=== PATIENT | female | born 1950 | race Caucasian/White ===

== ENCOUNTER → 2017-06-02 | Outpatient (CLI) | payer MEDICARE, BC ==
[2015-07-28 13:02] VITALS: BMI 16.8
[~2017-06-02] MED LIST: ACE3 PO; ALEN70TA2 PO; AMI10 PO; AMIT-104 PO; BAC10 PO; BUPR-472 PO; BUSP15TA69 PO; CALC-852 PO; CALC600T72; CELE-1 PO; CHOL200022 PO; CHOL200038 PO; CHOL40002 PO; CLON0.125 PO; CYCL10TA29 PO; DES100PT PO; DESV25TA PO; DESV50TA9 PO; DICL100G39 TP; DICL1ADH32 TD; DULO30CA35 PO; ERGO500037 PO; ESC10 PO; ESTR-25 PO; FLU IM; FLU30SYR8 IM ONLY; FLU45SYR17 IM; FLU45SYR25 IM ONLY; FLU60SYR30 IM ONLY; GABA-492 PO; GABA-547 PO; GABA-549 PO; GLUC-198 PO; HYDR12.561 PO; IRO150 PO; LISI-346 PO; LISI-362 PO; LISI5TAB25 PO; LOR1 PO; LORA-1455 PO; LORA-630 PO; MELA5TAB6 PO; MELO-205 PO; MELO-207 PO; METH4TAB66 PO; METO25TA23 PO; MIR45PT PO; MIRT-17 PO; MIRT-25 PO; MIRT-27 PO; MULT1CAP41 PO; NEBI2.5T PO; NEBI2.5T5 PO; NEBI5TAB PO; NOR PO; OLAN10TA25 PO; ONDA4TAB PO; ORP100 PO; PETADOLEX PO; PNEI IJ; PNEU0.5D3 IM; RIBO100T9 PO; TRAZ-156 PO; TRAZ-163 PO; VENL37.53 PO; VENL75CA58 PO; ZOLP-1 PO; [UNRECOGNIZED DRUG - OTHER]
--- NOTE | 2017-06-02 10:07 | RADIOLOGY IMAGING REPORT ---
[place] [facility] [place] NAME: Blanca Andre : 1950 MR: [id number] V: [id number] EXAM DATE: ORDERING PHYSICIAN: BLANCA MCGILL TECHNOLOGIST: Location: [facility] - [place] Patient: Blanca Andre : 1950 Visit/Account:[id number] Date of Sevice: 06/02/2017 DEXA Scan Clinical history: Postmenopausal osteopenia. Comparison: DEXA scan from 09/23/2014. LUMBAR SPINE: The bone mineral density (BMD) measured from L1-L4 correlates with a Z-score of 0.1 and a T-score of -2.3 which is osteopenia as defined by the World Health Organization. The corresponding risk of frac ture in the lumbar spine is 4-6 times increased compared with a young adult reference population. Th is value has decreased by 4.2 % since the prior study. More than 5% change is considered significant . HIP: Bone mineral density (BMD) measured in the LEFT total hip region correlates with a Z-score -1.1 and a T-score of -3 which is osteoporosis as defined by the World Health Organization. The corresponding risk of fracture in the hip is 8 times increased compared to a young adult reference population. This value has decreased by 10.4 % since the prior study. More than 5% change is considered significant. T score left femoral neck -2.4 Bone mineral density (BMD) measured in the Femoral Neck region measures 0.702 g/cm?. IMPRESSION: 1. Lumbar spine: Osteopenia. There has been 4.2% decrease in the bone mineral density since the pre vious exam. 2. Left Total Hip: Osteoporosis. There has been 10.4% decrease in the bone mineral density since th e previous exam. 3. Femoral Neck: Bone Mineral Density is 0.702 g/cm? The next DEXA scan of this patient should include the following sites: L1-L4 and the left hip. FRAX? WHO Fracture Risk Assessment Tool link: <http://www.shef.ac.uk/FRAX/tool.jsp?locationValue=9> PLEASE NOTE: 1) The World Health Organization defines low BMD as follows: T-score Normal > -1 Osteopenia < -1 and > -2.5 Osteoporosis < -2.5 without fractures Established osteoporosis < -2.5 with fractures 2) In general, you may wish to consider: Diagnosis Treatment Follow-up DEXA Normal BMD Prevention 2-3 years Osteopenia Prevention/therapy 1-2 years Osteoporosis Therapy Yearly 3) Fracture risk estimated from the T-score is more accurate for vertebral fractures (often spontane ous) than for hip fractures. Report Dictated By: Ana Miller MD at 06/02/2017 10:00 AM Report E-Signed By: Ana Miller MD at 06/02/2017 10:01 AM WSN:[email or web address]
== END ==
LOC: RAD 07:04
PROVIDERS: ATTEND Emergency Medicine
DX: Z13.820 Encounter for screening for osteoporosis (principal); M85.88 Other specified disorders of bone density and structure, other site; M81.0 Age-related osteoporosis without current pathological fracture; Z78.0 Asymptomatic menopausal state
CPT/HCPCS: 77080

== ENCOUNTER → 2017-06-07 | Outpatient (CLI) | payer MEDICARE, BC ==
[2015-07-28 13:02] VITALS: BMI 16.8
[~2017-06-07] MED LIST changes: +SERT-181 PO
== END ==
LOC: LAB 10:29
PROVIDERS: ATTEND Emergency Medicine
DX: R10.9 Unspecified abdominal pain (principal)
CPT/HCPCS: 87177; 87338; G0328; 82274

== ENCOUNTER → 2017-06-07 | Outpatient (CLI) | payer MEDICARE, BC ==
[2015-07-28 13:02] VITALS: BMI 16.8
[2017-06-07 16:48] LABS: PLATELET COUNT, AUTOMATED 232 K/uL (150-450)
== END ==
LOC: LAB 16:22
PROVIDERS: ATTEND Emergency Medicine
DX: R63.4 Abnormal weight loss (principal); M85.80 Other specified disorders of bone density and structure, unspecified site
CPT/HCPCS: 36415; 81001; 82040; 82247; 82306; 82310; 82374; 82435; 82565; 82947; 83970; 84075; 84132; 84155; 84295; 84443; 84450; 84460; 84520; 85025; 86140

== ENCOUNTER → 2017-06-19 | Outpatient (CLI) | payer MEDICARE, BC ==
[2015-07-28 13:02] VITALS: BMI 16.8
[~2017-06-19] MED LIST changes: +IOPAMIDOL 76% 75 ML INFUS BTL 75 ML ONE
--- NOTE | 2017-06-19 10:28 | RADIOLOGY IMAGING REPORT ---
[facility] PATIENT NAME: Blanca Andre : 1950 MR: [id number] V: [id number] EXAM DATE: ORDERING PHYSICIAN: BLANCA MCGILL TECHNOLOGIST: Location: [facility] Patient: Blanca Andre : 1950 Visit/Account:[id number] Date of Sevice: 06/19/2017 CHEST/AB/PELV W/CONTRAST HISTORY: abnormal weight loss ADDITIONAL HISTORY: None. TECHNIQUE: Following administration of IV contrast axial images acquired through the chest abdomen a nd pelvis during the arterial phase. Coronal and sagittal reformatting was also performed. Dose Lowe ring Technique One of the following dose optimization techniques was utilized in the performance of this exam: Autom ated exposure control; adjustment of the mA and/or kV according to the patient's size; or use of an i terative reconstruction technique. Specific details can be referenced in the facility's radiology C T exam operational policy. CONTRAST: 75 mL Isovue-370 COMPARISON: None. FINDINGS: CHEST: Lungs/Pleura: Mild biapical fibrotic change. There is a small focal area of dense airspace consolidation in the posterior medial right lower lobe which may represent atelectasis or scarring. Mild linear stranding in the lower lobes bilaterally ma y represent scarring versus atelectasis Mediastinum/lymph nodes: Negative. Heart/vessels: Mild coronary artery vascular calcifications Bones/soft tissues: No aggressive appearing bone lesions ABDOMEN AND PELVIS: Hepatobiliary: 1 cm indeterminant round hypoattenuating lesion posterior medial right lobe of the li arben Spleen: Negative. Pancreas: Negative. Adrenals: Negative. Kidneys ureters and bladder : There are extrarenal pelves bilaterally. Urinary bladder is mildly dis tended with moderate bladder wall thickening Genitalia: Uterus is retroverted and appears slightly heterogeneous GI: Moderate amount of fecal material in the colon which can be seen with constipation Vessels/spaces/nodes: Mild vascular calcifications throughout the abdomen and pelvis Bones/soft tissues: Gentle dextroconvex scoliosis of the lumbar spine. No aggressive appearing bone lesions are seen Additional findings: None pertinent. IMPRESSION: Mild biapical fibrotic change in the upper lung pappas Small focal area of dense airspace consolidation the posterior medial right lower lobe which may repr esent an area of atelectasis or scarring 1 cm indeterminate round hypoattenuating lesion posterior medial right lobe of the liver. Further ev aluation with ultrasound or MR may be helpful depending upon the clinical concern. Urinary bladder is mildly distended with moderate bladder wall thickening. This could be related to an infectious/inflammatory process Uterus appears slightly heterogeneous if of concern pelvic ultrasound recommended Moderate amount of fecal material in the colon which can be seen with constipation Report Dictated By: Ana Miller MD at 06/19/2017 9:55 AM Report E-Signed By: Ana Miller MD at 06/19/2017 10:23 AM WSN:[email or web address]
== END ==
LOC: CT 01:25
PROVIDERS: ATTEND Emergency Medicine
DX: K59.00 Constipation, unspecified (principal); K76.9 Liver disease, unspecified; R91.8 Other nonspecific abnormal finding of lung field; I25.10 Atherosclerotic heart disease of native coronary artery without angina pectoris
CPT/HCPCS: 71260; 74177; Q9967

== ENCOUNTER → 2017-06-30 | Outpatient (CLI) | payer MEDICARE, BC ==
[2015-07-28 13:02] VITALS: BMI 16.8
[~2017-06-30] MED LIST changes: -IOPAMIDOL 76% 75 ML INFUS BTL 75 ML ONE
--- NOTE | 2017-06-30 11:14 | RADIOLOGY IMAGING REPORT ---
FACILITY: PATIENT NAME: Blanca Andre : 1950 MR: [id number] V: [id number] EXAM DATE: ORDERING PHYSICIAN: BLANCA MCGILL TECHNOLOGIST: [place] [facility] [place]: Blanca Andre : 1950 Visit/Account:[id number] Date of Sevice: 06/30/2017 EXAMINATION: Abdominal ultrasound complete HISTORY: Abnormal CT of liver COMPARISON: CT chest abdomen and pelvis June 19, 2017 FINDINGS: Gallbladder: No stones, wall thickening, pericholecystic fluid or sonographic Moon sign. Liver: The 1 cm round hypoattenuating lesion along the posterior medial right lobe of the liver adjac ent to the right kidney appears to represent a simple cyst. Common duct: Normal measuring 3.1 mm. Pancreas: Appears unremarkable as imaged Spleen: Normal in size and echogenicity measuring eight cm in length. Kidneys: Normal in size and echogenicity, the right measures 11.2 cm in length, and the left 9.9 cm. No hydronephrosis. There are extrarenal pelves in both kidneys with mild pyelocaliectasis Upper abdominal aorta and IVC: Negative. Ascites: None. IMPRESSION: 1 cm round hypoattenuating lesion along the posterior medial aspect right lobe the liver appears to r epresent simple cyst Extrarenal pelves in both kidneys with mild pyelocaliectasis Report Dictated By: Ana Miller MD at 06/30/2017 10:55 AM Report E-Signed By: Ana Miller MD at 06/30/2017 11:09 AM WSN:[email or web address]
--- NOTE | 2017-06-30 11:25 | RADIOLOGY IMAGING REPORT ---
FACILITY: [facility] - [place] PATIENT NAME: Blanca Andre : 1950 MR: [id number] V: [id number] EXAM DATE: ORDERING PHYSICIAN: BLANCA MCGILL TECHNOLOGIST: Location: [facility] - [place] Patient: Blanca Andre : 1950 Visit/Account:[id number] Date of Sevice: 06/30/2017 PELVIC HISTORY: abnormal ct TECHNIQUE: Transvaginal and transabdominal ultrasound pelvis. COMPARISON: CT chest abdomen pelvis June 19, 2017 FINDINGS: Uterus: Retroverted; 5.2 cm length x 3.3 cm AP x 3.6 cm transverse. Myometrium: Appears heterogeneous and contains scattered calcifications. Endometrium: Appears thinned; double thickness 1.2 mm. Cervix: There is a heterogeneous hypoechoic masslike area within the cervix measuring 1 x 1.6 x 1 cm. Ovaries: Right - 1.7 x 1.4 x 0.8 Left - 1.4 x 1.3 x 0.9 Blood flow is documented in each ovary by duplex Doppler ultrasound. Adnexa: Grossly unremarkable. Free pelvic fluid: None. IMPRESSION: There is an atrophic retroverted uterus with heterogeneous myometrium containing scattered calcificat ions There is a heterogeneous hypoechoic masslike area within the cervix measuring 1 x 1.6 x 1 cm. SENIOR [employer]YRO[employer]IST co nsultation recommended Atrophic ovaries Report Dictated By: Ana Miller MD at 06/30/2017 11:09 AM Report E-Signed By: Ana Miller MD at 06/30/2017 11:21 AM WSN:[email or web address]
== END ==
LOC: US 03:23
PROVIDERS: ATTEND Emergency Medicine
DX: K76.9 Liver disease, unspecified (principal); N13.30 Unspecified hydronephrosis; N85.4 Malposition of uterus; N88.8 Other specified noninflammatory disorders of cervix uteri
CPT/HCPCS: 76700; 76856

== ENCOUNTER → 2017-07-05 | Outpatient (CLI) | payer MEDICARE, BC ==
[2015-07-28 13:02] VITALS: BMI 16.8
[~2017-07-05] MED LIST changes: +SODCTAB PO
== END ==
LOC: LAB 10:25
PROVIDERS: ATTEND Emergency Medicine
DX: E87.1 Hypo-osmolality and hyponatremia (principal)
CPT/HCPCS: 36415; 82310; 82374; 82435; 82565; 82947; 84132; 84295; 84520

== ENCOUNTER → 2017-08-07 | Outpatient (CLI) | payer MEDICARE, BC ==
[2015-07-28 13:02] VITALS: BMI 16.8
--- NOTE | 2017-08-07 17:12 | RADIOLOGY IMAGING REPORT ---
[place] [facility] [place] WILLIE PEREZ : [id number] MR: [id number] V: [id number] EXAM DATE: [id number] ORDERING PHYSICIAN: MARIA DEL ROSARIO ESCAMILLA TECHNOLOGIST: Crystal Trotter PROCEDURE:BILATERAL DIGITAL SCREENING MAMMOGRAM WITH CAD ASSISTED INTERPRETATION & 3D TOMOSYNTHESIS COMPARISON:Prior mammograms 04/05/16, 04/01/15, 03/11/14, 08/09/13, 02/08/13, 08/14/12. INDICATIONS:SCREENING FINDINGS: Moderately heterogeneous fibroglandular tissue is seen throughout the breasts. The parenchymal pattern has remained stable allowing for difference in mammographic technique & patient positioning. There is no evidence of malignant appearing mass, malignant appearing calcifications or other secondary sign of malignancy in either breast. DIAGNOSTIC CATEGORY 1--NEGATIVE. RECOMMENDATIONS: ROUTINE MAMMOGRAM AND CLINICAL EVALUATION. IMPRESSION: BIRADS 1: Negative. No significant abnormality is seen. Dictated by: Ana Miller M.D. on 08/07/2017 at 15:36 Transcribed by: AKIL on 08/07/2017 at 15:46 Approved by: Ana Miller M.D. on 08/07/2017 at 17:11 [facility]
== END ==
LOC: MAMO 11:33
PROVIDERS: ATTEND Radiology Radiation Oncology
DX: Z12.31 Encounter for screening mammogram for malignant neoplasm of breast (principal)
CPT/HCPCS: 77063; 77067

== ENCOUNTER → 2017-08-09 | Outpatient (CLI) | payer MEDICARE, BC ==
[2015-07-28 13:02] VITALS: BMI 16.8
== END ==
LOC: LAB 12:23
PROVIDERS: ATTEND Emergency Medicine
DX: E87.1 Hypo-osmolality and hyponatremia (principal)
CPT/HCPCS: 36415; 82310; 82374; 82435; 82565; 82947; 84132; 84295; 84520

== ENCOUNTER → 2017-08-21 | Outpatient (CLI) | payer MEDICARE, BC ==
[2015-07-28 13:02] VITALS: BMI 16.8
[~2017-08-21] MED LIST changes: +CLOM25CA PO
--- NOTE | 2017-08-21 12:42 | RADIOLOGY IMAGING REPORT ---
FACILITY: [facility] PATIENT NAME: Blanca Andre : 1950 MR: [id number] V: [id number] EXAM DATE: ORDERING PHYSICIAN: PAULO HERNANDEZ TECHNOLOGIST: Location: [facility] - [place] Patient: Blanca Andre : 1950 Visit/Account:[id number] Date of Sevice: 08/21/2017 TRANSVAGINAL NON-OB HISTORY: OTHER SPECIFIED NONINFLAMMATORY DISORDERS OF CERVIX UTERI TECHNIQUE: Transvaginal ultrasound pelvis. COMPARISON: Pelvic ultrasound June 30, 2017 FINDINGS: Uterus: Retroverted; 4.7 cm length x 1.9 cm AP x 2.7 cm transverse. Myometrium: Heterogeneous containing multiple calcifications. Endometrium: Unremarkable; double thickness 2.3 mm. Cervix: There is a heterogeneous hypoechoic masslike area within the cervix measuring 1.3 x 1.4 x 0.9 cm. Ovaries: Right - not visualized Left - not visualized Adnexa: Grossly unremarkable. Free pelvic fluid: None. IMPRESSION: There is a 1.3 x 1.4 x 0.9 cm heterogeneous hypoechoic mass like area within the cervix. Neither ovary visualized Retroverted atrophic uterus Report Dictated By: Ana Miller MD at 08/21/2017 12:33 PM Report E-Signed By: Ana Miller MD at 08/21/2017 12:38 PM WSN:[email or web address]
== END ==
LOC: RAD 10:09
PROVIDERS: ATTEND Obstetrics & Gynecology
DX: Z02.9 Encounter for administrative examinations, unspecified (principal)
CPT/HCPCS: 76830

== ENCOUNTER → 2017-10-31 | Outpatient (CLI) | payer MEDICARE, BC ==
[2015-07-28 13:02] VITALS: BMI 16.8
[~2017-10-31] MED LIST changes: -TRAZ-156 PO; -TRAZ-163 PO; +TRAZ100T31 PO; +TRAZ50TA34 PO
== END ==
LOC: LAB 10:38
PROVIDERS: ATTEND Emergency Medicine
DX: E87.1 Hypo-osmolality and hyponatremia (principal)
CPT/HCPCS: 36415; 82310; 82374; 82435; 82565; 82947; 84132; 84295; 84520

== ENCOUNTER → 2017-11-13 | Outpatient (CLI) | payer MEDICARE, BC ==
[2015-07-28 13:02] VITALS: BMI 16.8
[~2017-11-13] MED LIST changes: +CHOL100059 PO; +CHOL200018 PO; -CHOL200022 PO; +CYAN100088 PO; +CYAN20003 PO
== END ==
LOC: RESP 15:19
PROVIDERS: ATTEND Emergency Medicine
DX: Z02.9 Encounter for administrative examinations, unspecified (principal)

== ENCOUNTER → 2018-01-15 | Outpatient (CLI) | payer MEDICARE, BC ==
[2015-07-28 13:02] VITALS: BMI 16.8
[~2018-01-15] MED LIST changes: +FLU180SY11 IM
== END ==
LOC: LAB 09:57
PROVIDERS: ATTEND Emergency Medicine
DX: E87.1 Hypo-osmolality and hyponatremia (principal); R30.0 Dysuria
CPT/HCPCS: 36415; 81001; 82310; 82374; 82435; 82565; 82947; 84132; 84295; 84520

== ENCOUNTER → 2018-03-30 | Outpatient (CLI) | payer MEDICARE, BC ==
[2015-07-28 13:02] VITALS: BMI 16.8
[~2018-03-30] MED LIST changes: +ALBU8.5H IH; -ALEN70TA2 PO; +ALEN70TA46 PO; +LEVO750T44 PO
[2018-03-30 10:35] LABS: PLATELET COUNT, AUTOMATED 358 K/uL (150-450)
--- NOTE | 2018-03-30 11:06 | RADIOLOGY IMAGING REPORT ---
[place] [facility] [place] Blanca Andre : 1950 MR: [id number] V: [id number] EXAM DATE: ORDERING PHYSICIAN: BLANCA MCGILL TECHNOLOGIST: Location: [facility] [place] Patient: Blanca Andre : 1950 Visit/Account:[id number] Date of Sevice: 03/30/2018 ADDENDUM #1 Results were called to BLANCA MCGILL at 03/30/2018 11:18 AM. Report Dictated By: Ana Miller MD at 03/30/2018 11:18 AM Report E-Signed By: Ana Miller MD at 03/30/2018 11:19 AM ORIGINAL REPORT Exam type: CHEST PA LAT History: Cough x1 week, shortness of breath, on oxygen Comparison: July 27, 2015. Findings: There is hyperexpansion of the lung pappas. There are small bilateral pleural effusions, right great er than left. Streaky airspace consolidation in the lower lobes is also present. No evidence of ove rt pulmonary edema or cardiomegaly. IMPRESSION: 1. Small bilateral pleural effusions, right greater than left Streaky airspace consolidation the lower lobes consistent with infiltrate and/or atelectasis. Report Dictated By: Ana Miller MD at 03/30/2018 11:00 AM Report E-Signed By: Ana Miller MD at 03/30/2018 11:01 AM WSN:[email or web address]
--- NOTE | 2018-03-30 14:09 | RADIOLOGY IMAGING REPORT ---
FACILITY: [facility] PATIENT NAME: Blanca Andre : 1950 MR: [id number] V: [id number] EXAM DATE: ORDERING PHYSICIAN: BLANCA MCGILL TECHNOLOGIST: Location: [facility] Patient: Blanca Andre : 1950 Visit/Account:[id number] Date of Sevice: 03/30/2018 CT CTA CHEST W & W/O CON HISTORY: elevated D-dimer ADDITIONAL HISTORY: None. TECHNIQUE: CTA chest with intravenous contrast. Axial imaging acquired following administration of IV contrast timed for maximum opacification of the pulmonary arterial vasculature. Slab 3-D MIP jonnie nstructed images were also created for further evaluation and interpretation. Reconstruction of the [facility] data set includes multiplanar 2-D in the sagittal and coronal planes and 3-D reconstructed leonardo nal slab MIP series. 3-D images were created by the technologist.Dose Lowering Technique One of the following dose optimization techniques was utilized in the performance of this exam: Autom ated exposure control; adjustment of the mA and/or kV according to the patient's size; or use of an i terative reconstruction technique. Specific details can be referenced in the facility's radiology C T exam operational policy. CONTRAST: 75 mL Isovue-370 COMPARISON: CT chest abdomen pelvis June 19, 2017 FINDINGS: Lungs/pleura: Very mild biapical fibrotic changes appear stable. There has been interval developmen t of dense airspace consolidation in the posterior medial aspects of both lower lobes and anterior me dial right middle lobe and lingula. There are tiny bilateral posterior layering pleural effusions. Heart/vessels: No evidence of pulmonary emboli. There is pain cardiomegaly and mild coronary artery calcifications Mediastinum/lymph nodes: Negative. Visualized upper abdomen: 1 cm round hypoattenuating mass posterior aspect of the right lobe the prabhakar er remain stable likely a small cyst Bones/soft tissues: No aggressive appearing bone lesions are seen Additional findings: None IMPRESSION: No evidence of pulmonary emboli Mild cardiomegaly with coronary artery calcifications There has been interval development of dense airspace consolidation the posterior medial aspects of b oth lower lobes and anterior medial right middle lobe and lingula with tiny bilateral pleural effusio ns. These findings are likely related to bilateral pneumonia although superimposed atelectasis canno t be excluded Results were called toKara for BLANCA MCGILL at 03/30/2018 2:01 PM. Report Dictated By: Ana Miller MD at 03/30/2018 1:49 PM Report E-Signed By: Ana Miller MD at 03/30/2018 2:01 PM WSN:[email or web address]
== END ==
LOC: LAB 10:14
PROVIDERS: ATTEND Emergency Medicine
DX: I51.7 Cardiomegaly (principal); I25.10 Atherosclerotic heart disease of native coronary artery without angina pectoris; R91.8 Other nonspecific abnormal finding of lung field; J90 Pleural effusion, not elsewhere classified
CPT/HCPCS: 36415; 71046; 71275; 82040; 82247; 82310; 82374; 82435; 82565; 82947; 84075; 84132; 84155; 84295; 84450; 84460; 84520; 85025; 85379; 86140; Q9967

== ENCOUNTER → 2018-04-02 | Outpatient (CLI) | payer MEDICARE, BC ==
[2015-07-28 13:02] VITALS: BMI 16.8
[2018-04-02 09:52] LABS: PLATELET COUNT, AUTOMATED 420 K/uL (150-450)
== END ==
LOC: LAB 09:37
PROVIDERS: ATTEND Emergency Medicine
DX: J18.9 Pneumonia, unspecified organism (principal)
CPT/HCPCS: 36415; 82310; 82374; 82435; 82565; 82947; 84132; 84295; 84520; 85025; 86140

== ENCOUNTER → 2018-05-24 | Outpatient (CLI) | payer MEDICARE, BC ==
[2015-07-28 13:02] VITALS: BMI 16.8
[~2018-05-24] MED LIST changes: -MIRT-27 PO; +MIRT15TA11 PO; +ROSU10TA5 PO
== END ==
LOC: LAB 08:40
PROVIDERS: ATTEND Emergency Medicine
DX: I25.10 Atherosclerotic heart disease of native coronary artery without angina pectoris (principal); E87.1 Hypo-osmolality and hyponatremia

== ENCOUNTER → 2018-05-24 | Outpatient (CLI) | payer MEDICARE, BC ==
[2015-07-28 13:02] VITALS: BMI 16.8
[2018-05-24 10:13] LABS: LDL CHOLESTEROL 54 mg/dl
== END ==
LOC: LAB 09:36
PROVIDERS: ATTEND Emergency Medicine
DX: E55.9 Vitamin D deficiency, unspecified (principal); I10 Essential (primary) hypertension; E87.1 Hypo-osmolality and hyponatremia
CPT/HCPCS: 36415; 82040; 82247; 82306; 82310; 82374; 82435; 82465; 82565; 82947; 82977; 83718; 84075; 84132; 84155; 84295; 84450; 84460; 84478; 84520

== ENCOUNTER → 2018-08-17 | Outpatient (CLI) | payer MEDICARE, BC ==
[2015-07-28 13:02] VITALS: BMI 16.8
[~2018-08-17] MED LIST changes: +DICL-190 PO; +MELA5TAB3 PO; -MELA5TAB6 PO; -TRAZ50TA34 PO; +TRAZ50TA52 PO
--- NOTE | 2018-08-17 14:49 | RADIOLOGY IMAGING REPORT ---
FACILITY: [facility] [place] PATIENT NAME: Blanca Andre : 1950 MR: [id number] V: [id number] EXAM DATE: ORDERING PHYSICIAN: BLANCA MCGILL TECHNOLOGIST: Location: [facility] Patient: Blanca Andre : 1950 Visit/Account:[id number] Date of Sevice: 08/17/2018 PELVIC INDICATION: , cervical mass, 6 mo follow up COMPARISON: 08/21/2017 FINDINGS: Uterus measures 4.5 x 2.0 x 3.1 cm and is heterogeneous. Small punctate calcifications are noted. T here was an ill-defined hypoechoic mass measuring 1.3 x 1.4 x 0.9 cm on the previous examination. On today's study this measures 1.0 x 1.4 x 0.7 cm. Double wall endometrial stripe measures 1 mm and is heterogeneous There is no free fluid in the cul-de-sac. Urinary bladder is empty. Pelvic vessels appear unremarkable on this examination. Right ovary measures 1.4 x 1.6 x 0.9 cm and shows normal blood flow. Left ovary measures 1.7 x 1.7 x 1.1 cm and shows normal blood flow. IMPRESSION: 1. Slight interval decrease in size of hypoechoic solid mass within the cervix. 2. The remainder the pelvic ultrasound is within normal limits. Report Dictated By: Yeison De La Paz at 08/17/2018 2:39 PM Report E-Signed By: Yeison De La Paz at 08/17/2018 2:43 PM WSN:[email or web address]
== END ==
LOC: US 04:02
PROVIDERS: ATTEND Emergency Medicine
DX: N88.8 Other specified noninflammatory disorders of cervix uteri (principal)
CPT/HCPCS: 76856

== ENCOUNTER → 2018-08-31 | Outpatient (CLI) | payer MEDICARE, BC ==
[2015-07-28 13:02] VITALS: BMI 16.8
[~2018-08-31] MED LIST changes: +NITR-105 PO
== END ==
LOC: LAB 13:09
PROVIDERS: ATTEND Emergency Medicine
DX: M81.0 Age-related osteoporosis without current pathological fracture (principal)
CPT/HCPCS: 36415; 82523

== ENCOUNTER → 2018-09-04 | Outpatient (CLI) | payer MEDICARE, BC ==
[2015-07-28 13:02] VITALS: BMI 16.8
== END ==
LOC: LAB 10:03
PROVIDERS: ATTEND Emergency Medicine
DX: R30.0 Dysuria (principal)
CPT/HCPCS: 81001